=== PATIENT | female | born 2000 | race Caucasian/White ===

== ENCOUNTER 2024-11-06 18:13 | Emergency (ER) | payer MEDICAID, OTHER ==
[~2024-11-06] VITALS: Ht 162.6 cm; Wt 62.0 kg
[~2024-11-06 18:13] MED LIST: NALO4SPR BOTHNSTRLS
[2024-11-06 18:27] VITALS: BP 123/79; PULSE 99; RESP 18; TEMP 98.3; O2SAT 99
[2024-11-06 23:09] LABS: CHLORIDE 105 mEq/L (98-107); POTASSIUM 3.7 mEq/L (3.5-5.1); SODIUM 141 mEq/L (136-145)
[2024-11-06 23:10] LABS: CALCIUM 10.5 mg/dL (8.7-10.4); CARBON DIOXIDE 25 mEq/L (21-32)
[2024-11-06 23:15] LABS: CREATININE 0.9 mg/dL (0.6-1.0); GLUCOSE 101 mg/dL (70-105); UREA NITROGEN BLOOD 10 mg/dL (9-23)
[2024-11-06 23:16] LABS: ACETAMINOPHEN < 2 ug/mL (10-30)
[2024-11-06 23:20] LABS: BASOPHILS % 0.5 % (0.0-2.0); EOSINOPHILS % 0.6 % (0.0-5.0); HEMATOCRIT. 45.8 % (36.0-48.0); HEMOGLOBIN. 14.9 g/dL (12.0-16.0); LYMPHOCYTES % 22.7 % (20.0-50.0); MEAN CORPUSCULAR HEMOGLOBIN 28.1 pg (28.0-32.0); MEAN CORPUSCULAR HGB CONC 32.6 g/dL (31.0-37.0); MEAN PLATELET VOLUME 9.4 fl (7.4-10.4); MONOCYTES % 7.1 % (2.0-8.0); NEUTROPHILS % 69.1 % (40.0-76.0); PLATELET 285 x1000/uL (130-400); RED BLOOD CELL COUNT 5.32 mill/uL (4.2-5.4); RED CELL DISTRIBUTION WIDTH 15.5 % (11.6-14.6); WHITE BLOOD COUNT 10.6 x1000/uL (4.5-11.0)
[2024-11-06 23:29] LABS: ETHANOL BLOOD < 10 mg/dL (<10)
[2024-11-07 00:37] LABS: HCG SCREEN NEGATIVE
== END 2024-11-07 03:32 | disposition left against medical advice (07) ==
LOC: ER 18:13
DX: F41.9 Anxiety disorder, unspecified (principal); F19.90 Other psychoactive substance use, unspecified, uncomplicated
CPT/HCPCS: 36415; 80048; 80307; 80320; 80329; 84703; 85025; 99283; G0480

== ENCOUNTER 2024-11-06 19:17 | Emergency (ER) | payer MEDICAID ==
[~2024-11-06] VITALS: Ht 162.6 cm; Wt 49.8 kg
[2024-11-06 19:30] VITALS: BP 132/89; TEMP 98.3; O2SAT 100
[2024-11-06 19:35] VITALS: PULSE 100; RESP 16; O2SAT 100
== END 2024-11-06 19:37 | disposition left against medical advice (07) ==
LOC: ER 19:17
DX: R68.89 Other general symptoms and signs (principal); Z53.21 Procedure and treatment not carried out due to patient leaving prior to being seen by health care provider